=== PATIENT | female | born 2000 | race Caucasian/White ===

== ENCOUNTER 2024-02-15 22:15 | Inpatient (IN) | payer OTHER ==
[2024-02-16] VITALS: BMI 20.3
[2024-02-16] MEDS ORDERED: MAG HYDROX/AL HYDROX/SIMETH 30 ML UNIT-DOSE CUP PO PRN (03:57)
[2024-02-16] MEDS ORDERED: BENZONATATE 200 MG CAPSULE PO PRN (03:57)
[2024-02-16] MEDS ORDERED: IBUPROFEN 600 MG TABLET (FP) PO PRN (03:57)
[2024-02-16] MEDS ORDERED: BENZOCAINE/MENTHOL (CHLORASEPTIC ) LOZENGE MM PRN (03:57)
[2024-02-16] MEDS ORDERED: NALOXONE HCL 0.4 MG/ML VIAL IM PRN (03:57)
[2024-02-16] MEDS ORDERED: IBUPROFEN 400 MG TABLET (FP) PO PRN (03:57)
[2024-02-16] MEDS ORDERED: MAGNESIUM HYDROX 2400MG/30ML ORAL SUSPENSION 30 ML CUP PO PRN (03:57)
[2024-02-16] MEDS ORDERED: LOPERAMIDE HCL 2 MG CAPSULE PO PRN (03:57)
[2024-02-16] MEDS ORDERED: NALOXONE HCL (KLOXXADO) 8 MG SPRAY NS PRN (03:57)
[2024-02-16] MEDS ORDERED: POLYETHYLENE GLYCOL (HEALTHYLAX) 3350 17 GM PACKET PO PRN (03:57)
[2024-02-16] MEDS ORDERED: METHOCARBAMOL 500 MG TABLET PO PRN (03:57)
[2024-02-16] MEDS ORDERED: ACETAMINOPHEN 325 MG TABLET (FP) PO PRN (03:57)
[2024-02-16] MEDS ORDERED: guaiFENesin 600 MG TABLET.ER (FP) PO PRN (03:57)
[2024-02-16] MEDS ORDERED: cloNIDine HCL 0.1 MG TABLET PO PRN (03:59)
[2024-02-16] MEDS ORDERED: methaDONE HCL 10 MG TABLET (FOR DETOX USE ONLY) ONE (04:22)
[2024-02-16] MEDS: methaDONE HCL 10 MG TABLET (FOR DETOX USE ONLY) PO ONE (04:35)
[2024-02-16] MEDS: PRENATAL VITAMINS W/ FOLIC ACID TABLET (FP) PO SCH (10:59)
[2024-02-16] MEDS: hydrOXYzine PAMOATE 25 MG CAPSULE (FP) PO PRN (11:02)
[2024-02-16] MEDS: ALBUTEROL SO4 HFA INHALER IH PRN (11:05)
[2024-02-16] MEDS: BISMUTH SUBSALICYLATE 524 MG/30 ML PO PRN (21:24)
[2024-02-16] MEDS: DICYCLOMINE HCL 10 MG CAPSULE PO PRN (22:55)
[2024-02-16] MEDS: MELATONIN 5 MG TABLETS PO SCH (23:00)
[2024-02-16] MEDS: THIAMINE HCL 100 MG TABLET (FP) PO SCH (23:00)
[2024-02-17] MEDS: ONDANSETRON *ODT* 4 MG TABLET SL PRN (00:52)
[2024-02-17 02:12] VITALS: RESP 16
[2024-02-17] MEDS ORDERED: ALBUTEROL SO4 0.083% IH SOL 2.5 MG/3 ML VIAL.NEB. NEB PRN (02:26)
[2024-02-17] MEDS: TRIMETHOBENZAMIDE HCL 200MG/2ML INJ IM ONE ×2 (03:52)
[2024-02-17] MEDS: methaDONE HCL 10 MG TABLET (FOR DETOX USE ONLY) PO ONE (04:19)
[2024-02-17 14:12] LABS: HEMATOCRIT 36.2 % (32.4-45.2); HEMOGLOBIN 12.3 GM/dL (10.7-15.3); MCH 29.5 pg (25.7-33.7); MEAN CELL VOLUME 86.8 fl (80-96); PLATELET COUNT 208 10^3/uL (134-434); RBC 4.17 M/mm3 (3.60-5.2); RDW 13.9 % (11.6-15.6); WHITE BLOOD COUNT 4.4 K/mm3 (4.0-10.0)
[2024-02-17 14:25] LABS: ALBUMIN 3.4 g/dl (3.4-5.0); CALCIUM 8.6 mg/dL (8.5-10.1)
[2024-02-17 14:26] LABS: BLOOD UREA NITROGEN 6.6 mg/dL (7-18)
[2024-02-17 14:28] LABS: CREATININE 0.5 mg/dL (0.55-1.3)
[2024-02-17 14:30] LABS: BILIRUBIN,TOTAL 0.2 mg/dL (0.2-1); TOT PROT 6.8 g/dl (6.4-8.2)
[2024-02-17 16:24] LABS: POTASSIUM 3.9 mmol/L (3.5-5.1)
[2024-02-18 07:04] VITALS: BP 120/71; PULSE 67; TEMP 98.6
[2024-02-18] MEDS: methaDONE HCL 10 MG TABLET (FOR DETOX USE ONLY) PO ONE (10:00)
[2024-02-20] MEDS ORDERED: methaDONE HCL 10 MG TABLET (FOR DETOX USE ONLY) PO ONE (10:00)
== END 2024-02-18 09:45 | disposition left against medical advice (07) | DRG 770 ==
LOC: YASAS 22:15 → Y6N 02-16 03:59
PROVIDERS: ADMIT Allergy & Immunology; ATTEND Allergy & Immunology
PROC: HZ2ZZZZ Detoxification Services for Substance Abuse Treatment (ICD-10-PCS; principal; 2024-02-15)
DX: F11.23 Opioid dependence with withdrawal (principal); F14.20 Cocaine dependence, uncomplicated; J45.20 Mild intermittent asthma, uncomplicated
CPT/HCPCS: 36415; 80053; 80305; 80307; 81025; 85027; 86780; 93005; 93010; Q0162

== ENCOUNTER 2024-07-16 16:34 | Inpatient (IN) | payer OTHER ==
[2024-07-16 18:51] VITALS: BMI 21.9
[2024-07-16] MEDS ORDERED: NALOXONE HCL 0.4 MG/ML VIAL IM PRN (19:37)
[2024-07-16] MEDS ORDERED: IBUPROFEN 600 MG TABLET (FP) PO PRN (19:37)
[2024-07-16] MEDS ORDERED: guaiFENesin 600 MG TABLET.ER (FP) PO PRN (19:37)
[2024-07-16] MEDS ORDERED: ONDANSETRON *ODT* 4 MG TABLET SL PRN (19:37)
[2024-07-16] MEDS ORDERED: IBUPROFEN 400 MG TABLET (FP) PO PRN (19:37)
[2024-07-16] MEDS ORDERED: MAG HYDROX/AL HYDROX/SIMETH 30 ML UNIT-DOSE CUP PO PRN (19:37)
[2024-07-16] MEDS ORDERED: cloNIDine HCL 0.1 MG TABLET PO PRN (19:37)
[2024-07-16] MEDS ORDERED: BENZOCAINE/MENTHOL (CHLORASEPTIC ) LOZENGE MM PRN (19:37)
[2024-07-16] MEDS ORDERED: BISMUTH SUBSALICYLATE 524 MG/30 ML PO PRN (19:37)
[2024-07-16] MEDS ORDERED: POLYETHYLENE GLYCOL (HEALTHYLAX) 3350 17 GM PACKET PO PRN (19:37)
[2024-07-16] MEDS ORDERED: DICYCLOMINE HCL 10 MG CAPSULE PO PRN (19:37)
[2024-07-16] MEDS ORDERED: BENZONATATE 200 MG CAPSULE PO PRN (19:37)
[2024-07-16] MEDS ORDERED: ACETAMINOPHEN 325 MG TABLET (FP) PO PRN (19:37)
[2024-07-16] MEDS ORDERED: LOPERAMIDE HCL 2 MG CAPSULE PO PRN (19:37)
[2024-07-16] MEDS ORDERED: MAGNESIUM HYDROX 2400MG/30ML ORAL SUSPENSION 30 ML CUP PO PRN (19:37)
[2024-07-16] MEDS ORDERED: NALOXONE (NARCAN) HCL 4 MG/0.1 ML SPRAY NS PRN (19:37)
[2024-07-16] MEDS: MELATONIN 5 MG TABLETS PO SCH (23:23)
[2024-07-16] MEDS: methaDONE HCL 10 MG TABLET (FOR DETOX USE ONLY) PO ONE (23:23)
[2024-07-16] MEDS: THIAMINE 100 MG TABLET PO SCH (23:23)
[2024-07-17] MEDS: PRENATAL VITAMINS W/ FOLIC ACID TABLET (FP) PO SCH (09:32)
[2024-07-17] MEDS ORDERED: ALBUTEROL SO4 HFA INHALER IH PRN (10:48)
[2024-07-17 12:10] LABS: HEMATOCRIT 41.8 % (32.4-45.2); HEMOGLOBIN 14.1 GM/dL (10.7-15.3); MCH 29.5 pg (25.7-33.7); MCHC 33.8 g/dl (32.0-36.0); MEAN CELL VOLUME 87.4 fl (80-96); PLATELET COUNT 358 10^3/uL (134-434); RBC 4.79 M/mm3 (3.60-5.2); RDW 14.9 % (11.6-15.6); WHITE BLOOD COUNT 4.6 K/mm3 (4.0-10.0)
[2024-07-17] MEDS ORDERED: methaDONE HCL 10 MG TABLET PO PRN (12:47)
[2024-07-17 13:15] LABS: CHLORIDE 101 mmol/L (98-107); POTASSIUM 4.1 mmol/L (3.5-5.1); SODIUM 136 mmol/L (136-145)
[2024-07-17 13:26] LABS: BLOOD UREA NITROGEN 13.2 mg/dL (7-18); CALCIUM 9.6 mg/dL (8.5-10.1); GLUCOSE,RANDOM 130 mg/dL (74-106)
[2024-07-17 13:27] LABS: ANION GAP 13 mmol/L (4-13); CO2 22 mmol/L (21-32)
[2024-07-17 13:30] LABS: SGOT/AST 17 U/L (15-37); SGPT/ALT 23 U/L (13-61)
[2024-07-17 13:31] LABS: BILIRUBIN,TOTAL 0.4 mg/dL (0.2-1)
[2024-07-17 13:32] LABS: ALK PHOS 72 U/L (45-117)
[2024-07-17] MEDS: cloNIDine HCL 0.1 MG TABLET PO SCH (13:36)
[2024-07-17] MEDS: METHOCARBAMOL 500 MG TABLET PO PRN (17:51)
[2024-07-17] MEDS: clonazePAM 0.5 MG ODT TABLETS SL PRN (17:51)
[2024-07-18] MEDS: methaDONE 40 MG, methaDONE 10 MG PO ONE (09:39)
[2024-07-18] MEDS ORDERED: methaDONE HCL 10 MG TABLET (FOR DETOX USE ONLY) PO ONE (10:00)
[2024-07-18] MEDS: diazePAM 5 MG TABLET PO ONE (10:50)
[2024-07-18] MEDS: MUPIROCIN 2% TOPICAL OINTMENT 22 GM TUBE TP SCH (13:47)
[2024-07-18] MEDS: hydrOXYzine PAMOATE 25 MG CAPSULE (FP) PO PRN (21:41)
[2024-07-18] MEDS: HYDROCORTISONE 0.5% TOPICAL CREAM 30 GM TUBE TP PRN (21:43)
[2024-07-19] MEDS ORDERED: cloNIDine HCL 0.1 MG TABLET PO PRN
[2024-07-19] MEDS: methaDONE 40 MG, methaDONE 20 MG PO ONE (10:27)
[2024-07-19] MEDS: diazePAM 5 MG TABLET PO PRN (14:05)
[2024-07-20] MEDS: methaDONE 40 MG, methaDONE 30 MG PO ONE (09:24)
[2024-07-20] MEDS ORDERED: methaDONE HCL 10 MG TABLET (FOR DETOX USE ONLY) PO ONE (10:00)
[2024-07-20 17:39] VITALS: BP 103/50; PULSE 74; RESP 18; TEMP 97.7
[2024-07-21] MEDS ORDERED: methaDONE HCL 40 MG DISPERSABLE TABLET PO ONE (10:00)
[2024-07-22] MEDS ORDERED: methaDONE 80 MG, methaDONE 10 MG PO ONE (10:00)
== END 2024-07-20 17:45 | disposition left against medical advice (07) | DRG 770 ==
LOC: YASAS 16:34 → Y6N 19:56
PROVIDERS: ADMIT Allergy & Immunology; ATTEND Surgery
PROC: HZ2ZZZZ Detoxification Services for Substance Abuse Treatment (ICD-10-PCS; principal; 2024-07-16)
DX: F11.23 Opioid dependence with withdrawal (principal); F14.20 Cocaine dependence, uncomplicated; J45.909 Unspecified asthma, uncomplicated; L28.1 Prurigo nodularis; R73.9 Hyperglycemia, unspecified
CPT/HCPCS: 36415; 80053; 80305; 80307; 81025; 85027; 86780